=== PATIENT | male | born 1950 | race Hispanic/Latino ===

== ENCOUNTER 2021-04-10 17:13 | Inpatient (IN) | payer BC, OTHER ==
--- NOTE | 2021-04-10 17:49 | EDPHYS ---
Physician Documentation [facility] Name: Vinicius Arango Age: 70 yrs Sex: Male : 1950 Arrival Date: 04/10/2021 Time: 17:15 Bed 2 Private MD: ED Physician Jonnathan Lowry HPI: 04/10 17:40 This 70 yrs old Male presents to ER via Wheelchair with complaints of S/S of armin Possible Stroke. 17:40 The patient's problem is reported as altered mental status, decreased responsiveness, armin weakness, that is generalized. Onset: The symptoms/episode began/occurred 6 hour(s) ago. Duration: The episode is continuous. Context: the episode(s) was witnessed, by family. The symptoms are alleviated by nothing. The symptoms are aggravated by nothing. Associated signs and symptoms: Pertinent positives: confusion, dizziness, lightheadedness, nausea. Severity of symptoms: At their worst the symptoms were moderate in the emergency department the symptoms are unchanged. Patient's baseline: Neuro: alert and fully oriented. The patient has not experienced similar symptoms in the past. Historical: - Allergies: 17:25 No Known Allergies; ll1 - PMHx: 17:25 Hypertensive disorder; Hypercholesterolemia; Asthma; ll1 - PSHx: 17:25 None; ll1 - Immunization history:: Client reports receiving the 2nd dose of the Covid vaccine. - Social history:: Smoking status: Patient denies any tobacco usage or history of. ROS: 17:41 Eyes: Negative for injury, pain, redness, and discharge, ENT: Negative for injury, armin pain, and discharge, Neck: Negative for injury, pain, and swelling, Cardiovascular: Negative for chest pain, palpitations, and edema, Respiratory: Negative for shortness of breath, cough, wheezing, and pleuritic chest pain, Abdomen/GI: Negative for abdominal pain, nausea, vomiting, diarrhea, and constipation, Back: Negative for injury and pain, : Negative for injury, bleeding, discharge, and swelling, MS/Extremity: Negative for injury and deformity, Skin: Negative for injury, rash, and discoloration, Psych: Negative for depression, anxiety, suicide ideation, homicidal ideation, and hallucinations, Allergy/Immunology: Negative for hives, rash, and allergies, Endocrine: Negative for neck swelling, polydipsia, polyuria, polyphagia, and marked weight changes, Hematologic/Lymphatic: Negative for swollen nodes, abnormal bleeding, and unusual bruising. 17:41 Constitutional: Positive for fatigue, fever. 17:41 Neuro: Positive for dizziness, weakness. Exam: 17:41 Head/Face: Normocephalic, atraumatic. Eyes: Pupils equal round and reactive to light, armin extra-ocular motions intact. Lids and lashes normal. Conjunctiva and sclera are non-icteric and not injected. Cornea within normal limits. Periorbital areas with no swelling, redness, or edema. ENT: Nares patent. No nasal discharge, no septal abnormalities noted. Tympanic membranes are normal and external auditory canals are clear. Oropharynx with no redness, swelling, or masses, exudates, or evidence of obstruction, uvula midline. Mucous membranes moist. Neck: Trachea midline, no thyromegaly or masses palpated, and no cervical lymphadenopathy. Supple, full range of motion without nuchal rigidity, or vertebral point tenderness. No Meningismus. Chest/axilla: Normal chest wall appearance and motion. Nontender with no deformity. No lesions are appreciated. Cardiovascular: Regular rate and rhythm with a normal S1 and S2. No gallops, murmurs, or rubs. Normal PMI, no JVD. No pulse deficits. Respiratory: Lungs have equal breath sounds bilaterally, clear to auscultation and percussion. No rales, rhonchi or wheezes noted. No increased work of breathing, no retractions or nasal flaring. Abdomen/GI: Soft, non-tender, with normal bowel sounds. No distension or tympany. No guarding or rebound. No evidence of tenderness throughout. Back: No spinal tenderness. No costovertebral tenderness. Full range of motion. Male : Normal genitalia with no discharge or lesions. Skin: Warm, dry with normal turgor. Normal color with no rashes, no lesions, and no evidence of cellulitis. MS/ Extremity: Pulses equal, no cyanosis. Neurovascular intact. Full, normal range of motion. Psych: Awake, alert, with orientation to person, place and time. Behavior, mood, and affect are within normal limits. 17:41 Constitutional: The patient appears febrile. 17:41 Neuro: Orientation: appropriate for stated age, no acute changes, Mentation: slow to respond, Memory: is normal, appropriate for stated age, no acute changes, Cranial nerves: grossly normal, is grossly normal based on the patient's age, no acute changes, Cerebellar function: is grossly normal, is grossly normal based on the patient's age, no acute changes, Motor: moves all fours, strength is normal, Gait: not tested. Deep tendon reflexes are 2+ (normal) in the bilateral brachioradialis, bicep, tricep and patellar and Achilles tendons, seizure activity, is not displayed by the patient. 17:49 ECG was reviewed by the Attending Physician. armin 18:44 Radiologist reports: negative [facility] Vital Signs: 17:26 BP 107 / 66; Pulse 103; Resp 22; Temp 103.2; Pulse Ox 94% on R/A; Weight 88.45 kg; ll1 Height 5 ft. 8 in. (172.72 cm); 17:30 BP 107 / 66; Pulse 101; Resp 20; Pulse Ox 92% on R/A; tw5 18:34 BP 120 / 71; Pulse 102; Resp 25; Pulse Ox 95% on R/A; tw5 19:42 BP 113 / 64; Pulse 90; Resp 16; Temp 99.6(O); Pulse Ox 96% on R/A; Pain 0/10; ms4 20:43 BP 103 / 66; Pulse 83; Resp 21; Pulse Ox 97% on R/A; Pain 0/10; ms4 17:26 Body Mass Index 29.65 (88.45 kg, 172.72 cm) ll1 NIH Stroke Scale Scores: 17:41 NIHSS Score: 0 armin 17:54 NIHSS Score: 0 tw5 [place] Coma Score: 17:41 Eye Response: spontaneous(4). Verbal Response: oriented(5). Motor Response: obeys armin commands(6). Total: 15. MDM: 17:21 Patient medically screened. armin 17:44 Differential diagnosis: CVA, TIA, Dementia, metabolic disorder, viral Infection, armin bacterial infection, URI, bronchitis, pneumonia UTI, gastroenteritis. Differential Diagnosis altered mental status, sepsis, flu. Data reviewed: vital signs, nurses notes, lab test result(s), EKG, radiologic studies, CT scan, plain films. Data interpreted: rat culturist: rate is 101 beats/min, rhythm is regular, Pulse oximetry: on room air is 92 %. Test interpretation: by ED physician or midlevel provider: ECG, plain radiologic studies. Counseling: I had a detailed discussion with the patient and/or guardian regarding: the historical points, exam findings, and any diagnostic results supporting the discharge/admit diagnosis, lab results, radiology results, the need for further work-up and treatment in the hospital. 04/10 17:23 Order name: Basic Metabolic Panel [facility] 04/10 17:23 Order name: CBC with Diff [facility] 04/10 17:23 Order name: LFT's; Complete Time: 18:22 [facility] 04/10 17:23 Order name: Magnesium; Complete Time: 18:22 [facility] 04/10 17:23 Order name: NT PRO-BNP; Complete Time: 18:22 [facility] 04/10 17:23 Order name: PT-INR; Complete Time: 18:22 [facility] 04/10 17:23 Order name: Troponin (emerg Dept Use Only); Complete Time: 18:22 [facility] 04/10 17:23 Order name: Sed Rate; Complete Time: 18:44 [facility] 04/10 17:23 Order name: CRP; Complete Time: 18:22 [facility] 04/10 17:23 Order name: SARS-COV-2 RT PCR (Document "Date of Onset" if Symptomatic) [facility] 04/10 17:23 Order name: Basic Metabolic Panel; Complete Time: 18:22 EDMT 04/10 17:23 Order name: CBC with Automated Diff; Complete Time: 18:44 EDMT 04/10 17:39 Order name: Procalcitonin [facility] 04/10 17:39 Order name: Lactate; Complete Time: 18:22 [facility] 04/10 17:23 Order name: XRAY Chest (1 view) [facility] 04/10 17:23 Order name: CT Stroke Brain w/o Contrast; Complete Time: 18:22 [facility] 04/10 17:46 Order name: Flu [facility] 04/10 17:46 Order name: Influenza Screen (A EDMT 04/10 17:48 Order name: Blood Culture Adult (2) ch5 04/10 18:25 Order name: CBC Smear Scan; Complete Time: 18:44 EDMT 04/10 18:27 Order name: Urinalysis 04/10 18:46 Order name: Urine Dipstick-Ancillary; Complete Time: 18:47 EDMT 04/10 18:47 Order name: Urine Culture [facility] 04/10 18:47 Order name: CT Stone Protocol [facility] 04/10 18:48 Order name: RAD; Complete Time: 19:30 EDMS 04/10 20:08 Order name: CT EDMT 04/10 17:23 Order name: EKG; Complete Time: 17:24 [facility] 04/10 17:23 Order name: Cardiac monitoring; Complete Time: 17:56 [facility] 04/10 17:23 Order name: EKG - Nurse/Tech; Complete Time: 17:56 [facility] 04/10 17:23 Order name: IV Saline Lock; Complete Time: 17:56 [facility] 04/10 17:23 Order name: Labs collected and sent; Complete Time: 17:56 [facility] 04/10 17:23 Order name: O2 Per Protocol; Complete Time: 17:56 [facility] 04/10 17:23 Order name: O2 Sat Monitoring; Complete Time: 17:56 [facility] 04/10 17:23 Order name: Urine Dipstick-Ancillary (obtain specimen); Complete Time: 18:48 [facility] EC:49 Rate is 97 beats/min. Rhythm is regular. QRS [place] is Normal. UT interval is normal. QRS armin interval is normal. QT interval is normal. No Q waves. T waves are Normal. No ST changes noted. Clinical impression: NSR w/ Non-specific ST/T Changes and No evidence of ischemia. Interpreted by me. Reviewed by me. Administered Medications: 17:39 CANCELLED (Duplicate Order): NS 0.9% 1000 ml IV at 1 bolus Per protocol; 1000 mL bolus [facility] 18:52 Drug: Tylenol 1000 mg Route: PO; tw5 18:52 Drug: Aspirin Chewable Tablet 162 mg Route: PO; tw5 18:53 Drug: Cefepime 2 grams Route: IVPB; Rate: 200 ml/hr; Infused Over: 30 mins; Site: right tw5 antecubital; 19:39 Drug: foLIC Acid 1 mg Route: IVPB; Site: right antecubital; ms4 19:39 Drug: vancoMYCIN 1 grams Route: IVPB; Infused Over: 2 hrs; Site: left wrist; ms4 19:39 Drug: NS 0.9% (30 ml/kg) 30 ml/kg Route: IV; Rate: bolus; Site: left wrist; ms4 Disposition Summary: 04/10/21 17:48 Hospitalization Ordered Hospitalization Status: Inpatient Admission [facility] Provider: Meek, Mohammad armin Location: Telemetry/MedSurg (Inpatient) armin Condition: Fair armin Problem: new armin Symptoms: have improved armin Bed/Room Type: Standard [facility] Room Assignment: 430(04/10/21 20:30) tt3 Diagnosis - Fever, unspecified armin - Dysuria armin - Weakness armin - Sepsis, unspecified organism armin - UTI/ Urinary tract infection, site not specified armin - Elevated white blood cell count armin Forms: - Medication Reconciliation Form armin - SBAR form armin NIH Stroke Scale - NIH Stroke Score Date: 04/10/2021 Time: 17:41 Total Score = 0 1a. Level of Consciousness (LOC) - 0(Alert) 1b. Level of Consciousness (LOC) (Month \\T\\ Age) - 0(Both) 1c. LOC Commands (Open \\T\\ Closes Eyes/Meter Tester Primary) - 0(Both) 2. Best Gaze (Lateral Gaze Paresis) - 0(Normal) 3. Visual Field Loss - 0(No visual loss) 4. Facial Palsy - 0(Normal) 5a. Left Arm: Motor (10-second hold) - 0(No drift) 5b. Right Arm: Motor (10-second hold) - 0(No drift) 6a. Left Leg: Motor (5-second hold - always test supine) - 0(No drift) 6b. Right Leg: Motor (5-second hold - always test supine) - 0(No drift) 7. Limb Ataxia (finger/nose \\T\\ heel/samuels - test with eyes open) - 0(Absent) 8. Sensory Loss (pinprick arms/legs/face) - 0(Normal) 9. Best Language: Aphasia (description/naming/reading) - 0(No aphasia) 10. Dysarthria (speech clarity - read or repeat words) - 0(Normal) 11. Extinction and Inattention (visual/tactile/auditory/spatial/personal) - 0(No abnormality) Initials: [facility] NIH Stroke Scale - NIH Stroke Score Date: 04/10/2021 Time: 17:54 Total Score = 0 1a. Level of Consciousness (LOC) - 0(Alert) 1b. Level of Consciousness (LOC) (Month \\T\\ Age) - 0(Both) 1c. LOC Commands (Open \\T\\ Closes Eyes/Meter Tester Primary) - 0(Both) 2. Best Gaze (Lateral Gaze Paresis) - 0(Normal) 3. Visual Field Loss - 0(No visual loss) 4. Facial Palsy - 0(Normal) 5a. Left Arm: Motor (10-second hold) - 0(No drift) 5b. Right Arm: Motor (10-second hold) - 0(No drift) 6a. Left Leg: Motor (5-second hold - always test supine) - 0(No drift) 6b. Right Leg: Motor (5-second hold - always test supine) - 0(No drift) 7. Limb Ataxia (finger/nose \\T\\ heel/samuels - test with eyes open) - 0(Absent) 8. Sensory Loss (pinprick arms/legs/face) - 0(Normal) 9. Best Language: Aphasia (description/naming/reading) - 0(No aphasia) 10. Dysarthria (speech clarity - read or repeat words) - 0(Normal) 11. Extinction and Inattention (visual/tactile/auditory/spatial/personal) - 0(No abnormality) Initials: tw5 Signatures: Dispatcher [employer] EDMS Jonnathan Lowry MD MD cha Lewis, Lynsay, RN RN ll1 Hussein Andino tt3 Anders Diaz PA PA ej Stroud, Mikaela, RN RN ms4 Brenna Styles tw5 Corrections: (The following items were deleted from the chart) 17:39 17:23 NS 0.9% 1000 ml IV at 1 bolus Per protocol; 1000 mL bolus ordered. armin [facility] 20:30 17:48 armin tt3
--- NOTE | 2021-04-10 17:49 | ER ---
[facility] Name: Vinicius Arango Age: 70 yrs Sex: Male : 1950 Arrival Date: 04/10/2021 Time: 17:15 Bed 2 Private MD: Diagnosis: Fever, unspecified;Dysuria;Weakness;Sepsis, unspecified organism;UTI/ Urinary tract infection, site not specified;Elevated white blood cell count Presentation: 04/10 17:26 Chief complaint: Patient states: Fever since 1000 today. At 11 he started shaking, got ll1 dizzy, slurred speech, incontinent of urine, 1 episode of N/V. Coronavirus screen: Vaccine status: Patient reports receiving the 2nd dose of the covid vaccine. Client denies travel out of the [place] in the last 14 days. At this time, the client does not indicate any symptoms associated with coronavirus-19. Ebola Screen: Patient denies travel to an Ebola-affected area in the 21 days before illness onset. An acute neurological deficit is present. The patient has been moved to a treatment area. Initial Sepsis Screen: Does the patient meet any 2 criteria? RR > 20 per min. Temp <36.0*C (96.8*F)) or > 38.3*C (100.9*F). HR > 90 bpm. Yes Does the patient have a suspected source of infection? No. Patient's initial sepsis screen is negative. Risk Assessment: Do you want to hurt yourself or someone else? Patient reports no desire to harm self or others. Onset of symptoms was April 10, 2021. 17:26 Method Of Arrival: Wheelchair ll1 17:26 Acuity: DAVID 2 ll1 Stroke Activation: Symptom onset > 6 hours Physician: Stroke Attending; Name: ; Notified At: ; Arrived At: Physician: Chief Stroke Resident; Name: ; Notified At: ; Arrived At: Physician: Stroke Resident; Name: ; Notified At: ; Arrived At: Physician: ED Attending; Name: ; Notified At: ; Arrived At: Physician: ED Resident; Name: ; Notified At: ; Arrived At: Historical: - Allergies: 17:25 No Known Allergies; ll1 - PMHx: 17:25 Hypertensive disorder; Hypercholesterolemia; Asthma; ll1 - PSHx: 17:25 None; ll1 - Immunization history:: Client reports receiving the 2nd dose of the Covid vaccine. - Social history:: Smoking status: Patient denies any tobacco usage or history of. Screenin:54 Abuse screen: Denies threats or abuse. Denies injuries from another. Nutritional tw5 screening: No deficits noted. Tuberculosis screening: No symptoms or risk factors identified. Fall Risk No fall in past 12 months (0 pts). Secondary diagnosis (15 points) IV access (20 points). Ambulatory Aid- None/Bed Rest/Nurse Assist (0 pts). Gait- Weak (10 pts.). Mental Status- Overestimates/Forgets Limitations (15 pts.). Assessment: 17:27 General: Grady the daughter states ' He just threw up, my mom said he has been tw5 shaking. She gave him some medication for his fever. 17:31 Pain: Denies pain. Cardiovascular: Capillary refill < 3 seconds is brisk in left in tw5 bilateral. 17:54 VAN Scoring: Arm Drift: Patients demonstrates NO arm weakness. Patient is VAN Negative. tw5 General: Daughter states that after mass today he was complaining of general weakness, chest pain, it wasn't until later that they discovered that he had a fever. Neuro: Level of Consciousness is awake, alert, obeys commands, Oriented to person, place, time, situation, Leather Splitter are equal bilaterally. GI: Reports vomiting. : Reports incontinence. 18:33 The patient has not been NPO before screening. The patient is alert, and able to follow tw5 commands. The patient does not exhibit slurred or garbled speech. The patient is not exhibiting difficulty speaking. The patient is exhibiting difficulty understanding words. The patient is able to swallow own secretions with no drooling or need for suction. Patient tolerated one teaspoon of water. No drooling, immediate coughing, gurgling, or clearing of the throat was noted. The patient tolerated 90mL of water. No drooling, immediate coughing, gurgling, or clearing of the throat was noted. The patient passed the bedside swallow screening. Oral medications may be given as ordered. Contact Physician for further diet orders. Provider notified of bedside swallow screening results: Jonnathan Lowry MD. T-PA (Activase) Screening: Indications: Treatment will start within 4.5 hours onset of symptoms: No. 20:43 Reassessment: Patient appears in no apparent distress at this time. No changes from ms4 previously documented assessment. Patient and/or family updated on plan of care and expected duration. Pain level reassessed. Patient is alert, oriented x 3, equal unlabored respirations, skin warm/dry/pink. report given to lorna blue. patient to be transported to [facility]. Vital Signs: 17:26 BP 107 / 66; Pulse 103; Resp 22; Temp 103.2; Pulse Ox 94% on R/A; Weight 88.45 kg; ll1 Height 5 ft. 8 in. (172.72 cm); 17:30 BP 107 / 66; Pulse 101; Resp 20; Pulse Ox 92% on R/A; tw5 18:34 BP 120 / 71; Pulse 102; Resp 25; Pulse Ox 95% on R/A; tw5 19:42 BP 113 / 64; Pulse 90; Resp 16; Temp 99.6(O); Pulse Ox 96% on R/A; Pain 0/10; ms4 20:43 BP 103 / 66; Pulse 83; Resp 21; Pulse Ox 97% on R/A; Pain 0/10; ms4 17:26 Body Mass Index 29.65 (88.45 kg, 172.72 cm) ll1 [place] Coma Score: 17:41 Eye Response: spontaneous(4). Verbal Response: oriented(5). Motor Response: obeys armin commands(6). Total: 15. NIH Stroke Scale Scores: 17:41 NIHSS Score: 0 [facility] 17:54 NIHSS Score: 0 tw5 ED Course: 17:15 Patient arrived in ED. as 17:21 Jonnathan Lowry MD is Attending Physician. [facility] 17:21 Brenna Styles is Primary Nurse. tw5 17:25 Arm band placed on Patient placed in an exam room, on a stretcher. ll1 17:28 Triage completed. ll1 17:41 Inserted saline lock: 18 gauge in right antecubital area, using aseptic technique. ch5 17:41 Initial lab(s) drawn, by ED staff, First set of blood cultures drawn EKG done, by ED tw5 staff, reviewed by Jonnathan Lowry MD. 17:47 Jamil Meek MD is Hospitalizing Provider. [facility] 17:54 Patient moved back from CT. tw5 17:54 Patient has correct armband on for positive identification. Placed in gown. Bed in low tw5 position. Call light in reach. Side rails up X 1. Adult w/ patient. monitor technician on. Pulse ox on. NIBP on. Head of bed elevated. 17:55 Blood Culture Adult (2) Sent. ch5 17:55 Influenza Screen (A Sent. ch5 17:55 Flu Sent. ch5 17:55 Lactate Sent. ch5 17:55 Procalcitonin Sent. ch5 17:56 CRP Sent. ch5 17:56 Sed Rate Sent. ch5 17:56 Basic Metabolic Panel Sent. ch5 17:56 CBC with Diff Sent. ch5 17:56 LFT's Sent. ch5 17:56 Magnesium Sent. ch5 17:56 NT PRO-BNP Sent. ch5 17:56 PT-INR Sent. ch5 17:56 Troponin (emerg Dept Use Only) Sent. ch5 17:56 Basic Metabolic Panel Sent. ch5 17:56 SARS-COV-2 RT PCR (Document "Date of Onset" if Symptomatic) Sent. ch5 17:58 CT Stroke Brain w/o Contrast In Process Unspecified. EDMS 19:39 Inserted saline lock: 20 gauge in left wrist, using aseptic technique. Blood collected. ms4 20:05 CT Stone Protocol Sent. ms4 20:06 Urine Culture Sent. ms4 20:49 Primary Nurse role handed off by Brenna Styles tt3 Administered Medications: 17:39 CANCELLED (Duplicate Order): NS 0.9% 1000 ml IV at 1 bolus Per protocol; 1000 mL bolus armin 18:52 Drug: Tylenol 1000 mg Route: PO; tw5 18:52 Drug: Aspirin Chewable Tablet 162 mg Route: PO; tw5 18:53 Drug: Cefepime 2 grams Route: IVPB; Rate: 200 ml/hr; Infused Over: 30 mins; Site: right tw5 antecubital; 19:39 Drug: foLIC Acid 1 mg Route: IVPB; Site: right antecubital; ms4 19:39 Drug: vancoMYCIN 1 grams Route: IVPB; Infused Over: 2 hrs; Site: left wrist; ms4 19:39 Drug: NS 0.9% (30 ml/kg) 30 ml/kg Route: IV; Rate: bolus; Site: left wrist; ms4 Outcome: 17:48 Decision to Hospitalize by Provider. [facility] 21:06 Patient left the ED. ms4 NIH Stroke Scale - NIH Stroke Score Date: 04/10/2021 Time: 17:41 Total Score = 0 1a. Level of Consciousness (LOC) - 0(Alert) 1b. Level of Consciousness (LOC) (Month \\T\\ Age) - 0(Both) 1c. LOC Commands (Open \\T\\ Closes Eyes/Bondactor Machine Operator) - 0(Both) 2. Best Gaze (Lateral Gaze Paresis) - 0(Normal) 3. Visual Field Loss - 0(No visual loss) 4. Facial Palsy - 0(Normal) 5a. Left Arm: Motor (10-second hold) - 0(No drift) 5b. Right Arm: Motor (10-second hold) - 0(No drift) 6a. Left Leg: Motor (5-second hold - always test supine) - 0(No drift) 6b. Right Leg: Motor (5-second hold - always test supine) - 0(No drift) 7. Limb Ataxia (finger/nose \\T\\ heel/samuels - test with eyes open) - 0(Absent) 8. Sensory Loss (pinprick arms/legs/face) - 0(Normal) 9. Best Language: Aphasia (description/naming/reading) - 0(No aphasia) 10. Dysarthria (speech clarity - read or repeat words) - 0(Normal) 11. Extinction and Inattention (visual/tactile/auditory/spatial/personal) - 0(No abnormality) Initials: armin NIH Stroke Scale - NIH Stroke Score Date: 04/10/2021 Time: 17:54 Total Score = 0 1a. Level of Consciousness (LOC) - 0(Alert) 1b. Level of Consciousness (LOC) (Month \\T\\ Age) - 0(Both) 1c. LOC Commands (Open \\T\\ Closes Eyes/Bondactor Machine Operator) - 0(Both) 2. Best Gaze (Lateral Gaze Paresis) - 0(Normal) 3. Visual Field Loss - 0(No visual loss) 4. Facial Palsy - 0(Normal) 5a. Left Arm: Motor (10-second hold) - 0(No drift) 5b. Right Arm: Motor (10-second hold) - 0(No drift) 6a. Left Leg: Motor (5-second hold - always test supine) - 0(No drift) 6b. Right Leg: Motor (5-second hold - always test supine) - 0(No drift) 7. Limb Ataxia (finger/nose \\T\\ heel/samuels - test with eyes open) - 0(Absent) 8. Sensory Loss (pinprick arms/legs/face) - 0(Normal) 9. Best Language: Aphasia (description/naming/reading) - 0(No aphasia) 10. Dysarthria (speech clarity - read or repeat words) - 0(Normal) 11. Extinction and Inattention (visual/tactile/auditory/spatial/personal) - 0(No abnormality) Initials: tw5 Signatures: Dispatcher [employer] EDMS Jonnathan Lowry MD MD cha Martinez, Robyn Peterson RN RN ll1 Hussein Andino tt3 Bebe Peters RN RN ms4 Reggie Tejada RN RN ch5 Brenna Styles tw5
[2021-04-10 17:50] LABS: Absolute Lymphocytes (CBC) 1.4 K/uL (0.7-4.9); Basophils % 0.4 % (0-1.3); Hematocrit 39.4 % (39.6-49.0); Lymphocytes % 8.6 % (15.3-44.8); MPV 9.1 fL (7.6-11.3); RBC Red Blood Cell Count 4.45 M/uL (4.33-5.43)
[2021-04-10 17:53] LABS: Protime INR 1.1
--- NOTE | 2021-04-10 18:06 | RAD REPORT ---
EXAM DESCRIPTION: CT - Ct Stroke Brain Wo Cont - 04/10/2021 5:58 pm CLINICAL HISTORY: Confused;Numbness Headache, drowsiness COMPARISON: No comparisons TECHNIQUE: All CT scans are performed using dose optimization technique as appropriate and may inclu de automated exposure control or mA/KV adjustment according to patient size. FINDINGS: No intracranial hemorrhage, hydrocephalus or extra-axial fluid collection.No areas of brai n edema or evidence of midline shift. The paranasal sinuses and mastoids are clear. The calvarium is intact. Heavy atherosclerosis right ve rtebral artery. IMPRESSION: No acute intracranial abnormality. The findings were discussed with Dr. Lowry in the ER on 04/10/2021 at 6 p.m. by telephone.
[2021-04-10] MEDS ORDERED: CEFEPIME 1 GM/VIAL ONE ×2 (18:12→18:18)
[2021-04-10] MEDS ORDERED: NA CHLORIDE 0.9% 250 ML ONE (18:13)
[2021-04-10] MEDS ORDERED: NA CHLORIDE 0.9% 50 ML ONE (18:13)
[2021-04-10] MEDS ORDERED: ACETAMINOPHEN 500 MG TAB ONE (18:13)
[2021-04-10] MEDS ORDERED: VANCOMYCIN 1 GM/VIAL ONE (18:13)
[2021-04-10] MEDS ORDERED: NA CHLORIDE 0.9% 2,000 ML ONE (18:14)
[2021-04-10] MEDS ORDERED: FOLIC ACID 5 MG/ML VIAL ONE (18:15)
[2021-04-10] MEDS ORDERED: ASPIRIN EC 81 MG TAB PO ONE (18:17)
[2021-04-10] MEDS ORDERED: NA CHLORIDE 0.9% 100 ML ONE (18:18)
[2021-04-10 18:20] LABS: ALT/SGPT 28 U/L (12-78); AST/SGOT 20 U/L (15-37); Albumin 3.8 g/dL (3.4-5.0); Alkaline Phosphatase 61 U/L (45-117); BUN Blood Urea Nitrogen 16 mg/dL (7-18); Bicarbonate 25 mmol/L (21-32); Bilirubin Direct 0.2 mg/dL (0-0.2); Bilirubin Total 0.8 mg/dL (0.2-1.0); Glucose Level 150 mg/dL (74-106); Magnesium 1.8 mg/dL (1.8-2.4); NT PRO-BNP 43 pg/mL (<125); Potassium 3.7 mmol/L (3.5-5.1); Sodium Level 138 mmol/L (136-145); Troponin (Emerg Dept Use Only) < 0.02 ng/mL (0.0-0.045)
[2021-04-10 18:25] LABS: Blood Morphology Comment NOT SEEN (NOT SEEN); Platelet Estimate ADEQ; White Blood Cell Scan OK (OK)
[2021-04-10 18:46] LABS: Urine Blood 1+ (Negative); Urine Glucose Negative (Negative); Urine Protein 1+ (Negative)
--- NOTE | 2021-04-10 18:46 | RAD REPORT ---
EXAM DESCRIPTION: RAD - Chest Single View - 04/10/2021 6:38 pm CLINICAL HISTORY: COUGH Chest pain. COMPARISON: CHEST PA AND LAT 2 VIEW dated 02/08/2015 FINDINGS: Portable technique limits examination quality. The lungs are grossly clear. The heart is normal in size. No displaced fractures. IMPRESSION: No acute intrathoracic process suspected.
[2021-04-10 19:50] LABS: SARS-COV-2 RT PCR NEGATIVE (NEGATIVE)
--- NOTE | 2021-04-10 20:07 | RAD REPORT ---
EXAM DESCRIPTION: CT - Stone Protocol - 04/10/2021 7:59 pm CLINICAL HISTORY: Flank pain. Fever;Flank pain COMPARISON: ABDOMINAL EXAM COMPLETE dated 11/17/2009No comparisons TECHNIQUE: Axial images were obtained without oral or IV contrast. Lack of contrast limits solid org an and vascular assessment. The [id number] spans the entirety of the system partially obscuring uppermost abdomen and lung bases. Coronal reformatted images were obtained and reviewed. All CT scans are performed using dose optimization technique as appropriate and may include automated exposure control or mA/KV adjustment according to patient size. FINDINGS: The lower lung mallory are clear. Small hiatal hernia. Imaged portions of the liver and spleen show no suspicious findings on non-contrast imaging.Cholelith iasis. The pancreas and adrenal glands are normal. No pathologic lymphadenopathy in the abdomen or pe lvis. No urinary tract stones or obstructive uropathy. Prostate gland appears prominent in size with surrou nding inflammation. No bowel obstruction, free air, free fluid or abscess. Normal appendix noted. No significant bony abnormality. IMPRESSION: No urinary tract stones or obstructive uropathy. Prostate gland is enlarged in size with surrounding inflammation suggestive of prostatitis. Cholelithiasis.
--- NOTE | 2021-04-10 20:13 | P.HP ---
Certification for Inpatient Patient admitted to: Observation With expected LOS: <2 Midnights Patient will require the following post-hospital care: None Practitioner: I am a practitioner with admitting privileges, knowledge of patient current condition, hospital course, and medical plan of care. Services: Services provided to patient in accordance with Admission requirements found in Title 42 Section 412.3 of the Code of Federal Regulations Patient History Date of Service: 04/10/21 Reason for admission: UTI History of Present Illness: Mr. Arango is a 70 yo M with HTN, HLD, BPH who presents with fever to T103, chills beginning today. He reports nausea, vomiting, lightheadedness, incontinence. Daughter also reports weakness beginning today as well as AMS. At bedside, patient is alert and oriented. UA positive for blood, nitrites, and leukocyte esterase. Received tylenol, vancomycin and cefepime and IV fluids in the ED. CT STONE IMPRESSION: No urinary tract stones or obstructive uropathy. Prostate gland is enlarged in size with surrounding inflammation suggestive of prostatitis. Cholelithiasis. - Past Medical/Surgical History Diabetic: No -: HTN -: HLD -: asthma -: BPH -: goiter removal -: hand surgery -: prostate surgery - Family History Family History: Reviewed- Non-Contributory - Social History Smoking Status: Never smoker Alcohol use: No CD- Drugs: No Caffeine use: No Place of Residence: Home Review of Systems 10-point ROS is otherwise unremarkable General: Fever, Chills, Sweats, Weakness, Malaise, As per HPI Eyes: Unremarkable ENT: Unremarkable Respiratory: Unremarkable Gastrointestinal: Nausea, Vomiting, As per HPI Genitourinary: Incontinence, As per HPI Musculoskeletal: Unremarkable Integumentary: Unremarkable Neurological: Confusion, As per HPI Lymphatics: Unremarkable Physical Examination - Physical Exam General: Alert, In no apparent distress HEENT: Atraumatic, PERRLA, Mucous membr. moist/pink, EOMI, Sclerae nonicteric Neck: Supple, 2+ carotid pulse no bruit, No LAD, Without JVD or thyroid abnormality Respiratory: Clear to auscultation bilaterally, Normal air movement Cardiovascular: Regular rate/rhythm, Normal S1 S2 Gastrointestinal: Normal bowel sounds, No tenderness Musculoskeletal: No tenderness Integumentary: No rashes Neurological: Normal speech, Normal strength at 5/5 x4 extr, Normal tone, Normal affect Lymphatics: No axilla or inguinal lymphadenopathy - Studies Laboratory Data (last 24 hrs) 04/10/21 17:32: PT 12.7 H, INR 1.10 04/10/21 17:32: WBC 15.70 H, Hgb 13.5 L, Hct 39.4 L, Plt Count 180 04/10/21 17:32: Sodium 138, Potassium 3.7, BUN 16, Creatinine 1.04, Glucose 150 H, Magnesium 1.8, Total Bilirubin 0.8, AST 20, ALT 28, Alkaline Phosphatase 61 Assessment and Plan - Problems (Diagnosis) (1) UTI (urinary tract infection) Current Visit: Yes Status: Acute Qualifiers: Urinary tract infection type: site unspecified Hematuria presence: with he maturia Qualified Code(s): N39.0 - Urinary tract infection, site not specified; R31.9 - Hematuria, unspecified (2) Prostatitis Current Visit: Yes Status: Acute Qualifiers: Prostatitis type: acute Qualified Code(s): N41.0 - Acute prostatitis (3) HTN (hypertension) Current Visit: Yes Status: Chronic Qualifiers: Hypertension type: primary hypertension Qualified Code(s): I10 - Essential (primary) hypertension (4) HLD (hyperlipidemia) Current Visit: Yes Status: Chronic Qualifiers: Hyperlipidemia type: unspecified Qualified Code(s): E78.5 - Hyperlipidemia, unspecified (5) BPH (benign prostatic hyperplasia) Current Visit: Yes Status: Chronic Qualifiers: Lower urinary tract symptom presence: unspecified whether lower urinary tract symptoms present Qualified Code(s): N40.0 - Benign prostatic hyperplasia without lower urinary tract symptoms - Plan continue IVF hydration and IV levaquin urine and blood culture pending, urinalysis pending continue tylenol and ibuprofen PRN for fever DVT ppx reconcile and continue home medications Discharge Plan: Home Plan to discharge in: 24 Hours - Advance Directives Does patient have a Living Will: No Does patient have a Durable POA for Healthcare: No - Code Status/Comfort Care Code Status Assessed: Yes (full code ) Critical Care: No Time Spent Managing Pts Care (In Minutes): 70
[2021-04-10] MEDS ORDERED: ALBUTEROL 2.5 MG/3 ML NEB SOL NEB PRN (21:09)
[2021-04-10] MEDS ORDERED: IBUPROFEN 400 MG TAB PO PRN (21:09)
[2021-04-10] MEDS: NA CHLORIDE 0.9% 1,000 ML IV SCH (21:09)
[2021-04-10] MEDS ORDERED: ONDANSETRON 4 MG/2 ML VIAL IV PRN (21:09)
[2021-04-10] MEDS: INSULIN -REGULAR HUMAN 50 UNIT/0.5 ML ML SQ SCH (21:09)
[2021-04-10] MEDS ORDERED: ACETAMINOPHEN 500 MG TAB PO PRN (21:09)
[2021-04-10 22:38] VITALS: BMI 29.6
[2021-04-10 23:37] LABS: Urine Appearance CLOUDY (Clear); Urine Bilirubin NEGATIVE (Negative); Urine Blood 1+ (Negative); Urine Color YELLOW (Yellow); Urine Glucose NEGATIVE (Negative); Urine Protein NEGATIVE (Negative); Urine Specific Gravity <=1.005 (1.005-1.030); Urine Urobilinogen 0.2 mg/dL (0.2-1.0)
[2021-04-10 23:39] LABS: Urine Microscopic Reflex ORDER UMIC
[2021-04-10 23:46] LABS: Urine RBC <5 /HPF (NONE SEEN)
[2021-04-10 23:47] LABS: Urine Bacteria <20 /HPF (NONE SEEN); Urine Urothelial Cells <5 /HPF (NONE SEEN)
[2021-04-11] MEDS ORDERED: Levofloxacin 750mg IV 750 MG/150 ML BAG IV SCH
[2021-04-11 06:18] LABS: Absolute Lymphocytes (CBC) 2.7 K/uL (0.7-4.9); Basophils % 0.3 % (0-1.3); Lymphocytes % 10.2 % (15.3-44.8); MPV 10.5 fL (7.6-11.3); RBC Red Blood Cell Count 4.05 M/uL (4.33-5.43)
[2021-04-11 06:35] LABS: Bilirubin Total 1.4 mg/dL (0.2-1.0); Phosphorus 2.9 mg/dL (2.5-4.9); Potassium 3.7 mmol/L (3.5-5.1); Protein, Total 6.4 g/dL (6.4-8.2)
[2021-04-11 06:36] LABS: Magnesium 1.9 mg/dL (1.8-2.4); Thyroid Stimulating Hormone 2.08 uIU/mL (0.360-3.740)
[2021-04-11] MEDS: NA CHLORIDE 0.9% 1,000 ML IV SCH ×2 (06:56→15:33)
[2021-04-11 07:13] LABS: Blood Morphology Comment NOT SEEN (NOT SEEN); Platelet Estimate DECR
[2021-04-11] MEDS ORDERED: PNEUMOCOCCAL VACCINE 0.5 ML IMVAC ONE (08:00)
[2021-04-11] MEDS ORDERED: POTASSIUM CL SA 10 MEQ TAB PO ONE (08:00)
[2021-04-11] MEDS: INSULIN -REGULAR HUMAN 50 UNIT/0.5 ML ML SQ SCH ×4 (09:07→20:08)
[2021-04-11] MEDS: ENOXAPARIN 40 MG/0.4 ML SQ SCH (09:20)
[2021-04-11] MEDS ORDERED: levoFLOXacin 750 MG TAB PO SCH ×2 (11:00→12:30)
[2021-04-11] MEDS ORDERED: POLYETHYL GLY 3350 17 GM/DOSE PO PRN (16:57)
[2021-04-11] MEDS ORDERED: MAGNESIUM CITRATE 300 ML BOT PO SCH (17:00)
--- NOTE | 2021-04-11 17:08 | P.PN ---
Subjective Date of Service: 04/11/21 Chief Complaint: UTI Patient states he feels better. He denies any dysuria. Patient's daughters by his bedside will mentioned he has incontinence. He has a history of enlarged prostate status post prostatectomy. CT abdomen and pelvis reporting enlarge prostate and prostatitis. Leukocytosis is worse today. Physical Examination - Vital Signs Temperature: 98.4 F Blood Pressure: 93/64 Pulse: 62 Respirations: 16 Pulse Ox (%): 95 - Physical Exam General: Alert, In no apparent distress, Oriented x3 Neck: JVD not distended Respiratory: Clear to auscultation bilaterally, Normal air movement Cardiovascular: Regular rate/rhythm, Normal S1 S2 Gastrointestinal: Normal bowel sounds, Soft and benign, Non-distended, No tenderness Musculoskeletal: No swelling Integumentary: No rashes Neurological: Normal strength at 5/5 x4 extr - Studies Laboratory Data (last 24 hrs) 04/10/21 17:32: PT 12.7 H, INR 1.10 04/10/21 17:32: WBC 15.70 H, Hgb 13.5 L, Hct 39.4 L, Plt Count 180 04/10/21 17:32: Sodium 138, Potassium 3.7, BUN 16, Creatinine 1.04, Glucose 150 H, Magnesium 1.8, Total Bilirubin 0.8, AST 20, ALT 28, Alkaline Phosphatase 61 Assessment And Plan - Current Problems (Diagnosis) (1) Sepsis Current Visit: Yes Status: Acute (2) Prostatitis Current Visit: Yes Status: Acute Qualifiers: Prostatitis type: acute Qualified Code(s): N41.0 - Acute prostatitis (3) UTI (urinary tract infection) Current Visit: Yes Status: Acute Qualifiers: Urinary tract infection type: site unspecified Hematuria presence: with hematuria Qualified Code(s): N39.0 - Urinary tract infection, site not specified; R31.9 - Hematuria, unspecified (4) BPH (benign prostatic hyperplasia) Current Visit: Yes Status: Chronic Qualifiers: Lower urinary tract symptom presence: unspecified whether lower urinary tract symptoms present Qualified Code(s): N40.0 - Benign prostatic hyperplasia without lower urinary tract symptoms - Plan Continue current antibiotics. Follow urine culture and blood cultures. Started Flomax for BPH. Patient also complaining of constipation. Patient started on MiraLax and senna. Discussed outpatient follow up with urology. Patient may need 2 weeks of antibiotics pending culture results. Elevated total bilirubin of unknown significance. Monitor LFT. Will get right upper quadrant sonogram if hyperbilirubinemia persist.
[2021-04-11] MEDS: Levofloxacin 750mg IV 750 MG/150 ML BAG IV SCH (17:31)
[2021-04-11] MEDS ORDERED: ALBUTEROL 2.5 MG/3 ML NEB SOL NEB PRN (18:00)
[2021-04-11] MEDS: TAMSULOSIN 0.4 MG SR CAP PO SCH (20:07)
[2021-04-11] MEDS: SENOSIDES 8.6 MG TAB PO SCH (20:07)
[2021-04-12] MEDS: NA CHLORIDE 0.9% 1,000 ML IV SCH ×2 (03:11→12:21)
[2021-04-12 04:14] LABS: Absolute Lymphocytes (CBC) 2.1 K/uL (0.7-4.9); Basophils % 0.2 % (0-1.3); Lymphocytes % 10.7 % (15.3-44.8); MPV 10.2 fL (7.6-11.3); RBC Red Blood Cell Count 3.85 M/uL (4.33-5.43)
[2021-04-12 04:37] LABS: ALT/SGPT 17 U/L (12-78); AST/SGOT 16 U/L (15-37); Albumin 2.9 g/dL (3.4-5.0); Alkaline Phosphatase 60 U/L (45-117); BUN Blood Urea Nitrogen 12 mg/dL (7-18); Bicarbonate 23 mmol/L (21-32); Bilirubin Total 0.7 mg/dL (0.2-1.0); Glucose Level 112 mg/dL (74-106); Potassium 3.6 mmol/L (3.5-5.1); Protein, Total 6.5 g/dL (6.4-8.2); Sodium Level 140 mmol/L (136-145)
[2021-04-12] MEDS: INSULIN -REGULAR HUMAN 50 UNIT/0.5 ML ML SQ SCH ×4 (08:21→20:11)
[2021-04-12] MEDS: ENOXAPARIN 40 MG/0.4 ML SQ SCH (08:22)
[2021-04-12] MEDS: SENOSIDES 8.6 MG TAB PO SCH ×2 (08:22→20:10)
--- NOTE | 2021-04-12 13:29 | P.PN ---
Date of Service: 04/12/21 Subjective: No acute events overnight. Patient reports feeling much better today. Able to ambulate in the room, breathing better, denies any dysuria Had small bowel movement yesterday, not painful ROS: 10 point ROS as noted above, otherwise negative Physical exam GEN: Alert, oriented, NAD HEENT: Normal conjunctiva, sclera anicteric CV: Regular rate and rhythm, no edema Pulm: Nonlabored respiration on room air ABD: Soft, nontender, nondistended Integumentary: No rashes Neuro: Normal speech, normal affect Problem List Sepsis secondary to urinary tract infection/prostatitis h/o BPH Constipation Continue current antibiotics, follow-up urine and blood cultures. Preliminary growing gram-negative rods Continue Flomax for BPH MiraLAX and senna started yesterday for constipation with improvement Overall clinically improving, leukocytosis slightly improved as well, but remains significantly elevated Will continue to trend anticipate dc home tomorrow if continues to improve and after culture sensitivities Time Spent Managing Pts Care (In Minutes): 35
[2021-04-12] MEDS: Levofloxacin 750mg IV 750 MG/150 ML BAG IV SCH (18:06)
[2021-04-12] MEDS: TAMSULOSIN 0.4 MG SR CAP PO SCH (20:11)
[2021-04-13 05:04] LABS: ALT/SGPT 21 U/L (12-78); AST/SGOT 16 U/L (15-37); Albumin 2.9 g/dL (3.4-5.0); Alkaline Phosphatase 62 U/L (45-117); BUN Blood Urea Nitrogen 12 mg/dL (7-18); Bicarbonate 23 mmol/L (21-32); Bilirubin Total 0.4 mg/dL (0.2-1.0); Glucose Level 119 mg/dL (74-106); Magnesium 2.2 mg/dL (1.8-2.4); Potassium 3.8 mmol/L (3.5-5.1); Sodium Level 140 mmol/L (136-145)
[2021-04-13 05:05] LABS: Absolute Lymphocytes (CBC) 2.2 K/uL (0.7-4.9); Basophils % 0.6 % (0-1.3); Hematocrit 35.2 % (39.6-49.0); Lymphocytes % 19.4 % (15.3-44.8); MPV 9.9 fL (7.6-11.3); RBC Red Blood Cell Count 3.97 M/uL (4.33-5.43)
[2021-04-13] MEDS: INSULIN -REGULAR HUMAN 50 UNIT/0.5 ML ML SQ SCH (07:30)
[2021-04-13] MEDS: ENOXAPARIN 40 MG/0.4 ML SQ SCH (08:37)
[2021-04-13] MEDS: SENOSIDES 8.6 MG TAB PO SCH (08:37)
[2021-04-13 08:41] VITALS: O2SAT 96
[2021-04-13 10:58] VITALS: BP 135/83; TEMP 97.6
--- NOTE | 2021-04-13 20:26 | P.DS ---
Admission Date: 04/10/21 Discharge Date: 04/13/21 Disposition: ROUTINE DISCHARGE Discharge Condition: GOOD Reason for Admission: Prostatitis Procedures: CT Brain (04/10): IMPRESSION: No acute intracranial abnormality. CXR (04/10): IMPRESSION: No acute intrathoracic process suspected. CT Abd (04/10): FINDINGS: The lower lung mallory are clear. Small hiatal hernia. Imaged portions of the liver and spleen show no suspicious findings on non- contrast imaging.Cholelithiasis. The pancreas and adrenal glands are normal. No pathologic lymphadenopathy in the abdomen or pelvis. No urinary tract stones or obstructive uropathy. Prostate gland appears prominent in size with surrounding inflammation. No bowel obstruction, free air, free fluid or abscess. Normal appendix noted. No significant bony abnormality. IMPRESSION: No urinary tract stones or obstructive uropathy. Prostate gland is enlarged in size with surrounding inflammation suggestive of prostatitis. Cholelithiasis. Problem List Sepsis secondary to urinary tract infection/prostatitis h/o BPH Constipation Brief History of Present Illness: 70 yo M with HTN, HLD, BPH who presents with fever to T103, chills beginning today. He reports nausea, vomiting, lightheadedness, incontinence. Daughter also reports weakness beginning today as well as AMS. At bedside, patient is alert and oriented. UA positive for blood, nitrites, and leukocyte esterase. Received tylenol, vancomycin and cefepime and IV fluids in the ED. Hospital Course: Antibiotics were de-escalated to IV Levaquin. Patient had gradual improvement and resolution of his symptoms. He also had improvement of his lab work / leukocytosis. He felt back to his baseline, tolerating PO, ambulating, and urinating/stooling without issue. He was discharged home to complete a total of 4 weeks of PO Levaquin to treat prostatitis. Follow up: PCP in 3-5 days Urology in next few weeks. Vital Signs/Physical Exam: Physical exam GEN: Alert, oriented, NAD HEENT: Normal conjunctiva, sclera anicteric CV: Regular rate and rhythm, no edema Pulm: Nonlabored respiration on room air ABD: Soft, nontender, nondistended Integumentary: No rashes Neuro: Normal speech, normal affect Temp Pulse Resp BP Pulse Ox 97.6 F 65 16 135/83 93 04/13/21 09:00 04/13/21 09:00 04/13/21 09:00 04/13/21 09:00 04/13/21 09:00 Laboratory Data at Discharge: WBC 11.20 K/uL (4.3-10.9) H D 04/13/21 03:08 Hgb 12.1 g/dL (13.6-17.9) L 04/13/21 03:08 Hct 35.2 % (39.6-49.0) L 04/13/21 03:08 Plt Count 149 K/uL (152-406) L 04/13/21 03:08 PT 12.7 SECONDS (9.5-12.5) H 04/10/21 17:32 INR 1.10 04/10/21 17:32 Sodium 140 mmol/L (136-145) 04/13/21 03:08 Potassium 3.8 mmol/L (3.5-5.1) 04/13/21 03:08 BUN 12 mg/dL (7-18) 04/13/21 03:08 Creatinine 0.80 mg/dL (0.55-1.3) 04/13/21 03:08 Glucose 119 mg/dL (74-106) H 04/13/21 03:08 Phosphorus 2.9 mg/dL (2.5-4.9) 04/11/21 05:34 Magnesium 2.2 mg/dL (1.8-2.4) 04/13/21 03:08 Total Bilirubin 0.4 mg/dL (0.2-1.0) 04/13/21 03:08 AST 16 U/L (15-37) 04/13/21 03:08 ALT 21 U/L (12-78) 04/13/21 03:08 Alkaline Phosphatase 62 U/L (45-117) 04/13/21 03:08 Triglycerides 89 mg/dL (<150) 04/11/21 05:34 Cholesterol 127 mg/dL (<200) 04/11/21 05:34 HDL Cholesterol 52 mg/dL (40-60) 04/11/21 05:34 Cholesterol/HDL Ratio 2.44 04/11/21 05:34 Home Medications: Levofloxacin [Levaquin] 500 mg PO DAILY 25 Days #25 tablet 04/13/21 Tamsulosin [Flomax*] 0.4 mg PO BEDTIME 30 Days #30 cap 04/13/21 New Medications: Tamsulosin [Flomax*] 0.4 mg PO BEDTIME 30 Days #30 cap Levofloxacin [Levaquin] 500 mg PO DAILY 25 Days #25 tablet Physician Discharge Instructions: You were found to have acute bacterial prostatitis - infection of your prostate. Your urine culture grew e. coli. You improved with IV antibiotics and discharged home to continue antibiotics for a total of 4 weeks. You are also discharged with flomax - medicine to help the prostate and help urinate. Follow up with PCP in 3-5 days. Recommend repeat urine test / culture next week (after ~7 total days of antibiotics) Follow up with Urology as previously discussed with your PCP. Diet: Regular Activity: Ad nay Followup: NONE,NONE [Primary Care Provider] - Time spent managing pt's care (in minutes): 45
== END 2021-04-13 09:35 | disposition home or self-care (01) | DRG 872 ==
LOC: ER 17:13 → ERHOLD 18:31 → 4TH 20:33
PROVIDERS: ADMIT Internal Medicine; ATTEND Hospitalist
DX: A41.51 Sepsis due to Escherichia coli [E. coli] (principal); N39.0 Urinary tract infection, site not specified; N41.0 Acute prostatitis; I10 Essential (primary) hypertension; E78.5 Hyperlipidemia, unspecified; N40.0 Benign prostatic hyperplasia without lower urinary tract symptoms; J45.909 Unspecified asthma, uncomplicated; K59.00 Constipation, unspecified; B96.89 Other specified bacterial agents as the cause of diseases classified elsewhere; R31.9 Hematuria, unspecified; Z79.899 Other long term (current) drug therapy; Z20.822 Contact with and (suspected) exposure to COVID-19
CPT/HCPCS: 0240U; 36415; 70450; 71045; 74176; 76377; 80048; 80053; 80061; 80076; 81003; 81015; 82947; 83605; 83735; 83880; 84100; 84145; 84439; 84443; 84484; 85025; 85610; 85652; 86140; 87040; 87077; 87086; 87088; 87186; 90732; 93005; 94760; 99285; J0692; J1650; J3370; J7030; J7050